=== PATIENT | male | born 1975 | race Two or more races ===

== ENCOUNTER 2023-01-23 10:29 | Emergency (ER) | payer BC ==
[~2023-01-23] VITALS: Ht 175.3 cm; Wt 84.8 kg
[2023-01-23] MEDS ORDERED: DexAMETHasone SOD PHOS 10MG/1ML VIAL INJ IM ONE (11:00)
[2023-01-23] MEDS ORDERED: METH4PAK PO (11:41)
[2023-01-23 12:00] VITALS: BP 145/82; PULSE 78; RESP 18; TEMP 97.5; O2SAT 95
== END 2023-01-23 12:06 | disposition home or self-care (01) ==
LOC: ER 10:29
DX: G51.0 Bell's palsy (principal); I10 Essential (primary) hypertension; E78.5 Hyperlipidemia, unspecified; Z79.899 Other long term (current) drug therapy
CPT/HCPCS: 70450; 96372; 99285; J1100